=== PATIENT | male | born 1995 | race Caucasian/White ===

== ENCOUNTER 2023-10-20 04:08 | Inpatient (IN) | payer BC, MEDICAID ==
[~2023-10-20] VITALS: Ht 175.3 cm; Wt 78.7 kg
[~2023-10-20 04:08] MED LIST: HYDR-3927 PO; NICO-907 BC; PALI156D IM; PRAZ1CAP5 PO; TRAZ-251 PO
[2023-10-20] MEDS ORDERED: diphenhydrAMINE 50 mg/ml inj IM ONE (04:30)
[2023-10-20 05:03] LABS: PLATELET COUNT 182 X10'3 (140-440)
[2023-10-20 05:04] LABS: BASOPHILS % (AUTO) 0.8 % (0-1); EOSINOPHILS # (AUTO) 0.2 X10'3 (0-0.9); EOSINOPHILS % (AUTO) 4.5 % (0-6); HEMATOCRIT 44.1 % (42.0-52.0); HEMOGLOBIN 14.7 g/dl (14.0-17.9); LYMPHOCYTES # (AUTO) 1.7 X10'3 (1.1-4.8); LYMPHOCYTES % (AUTO) 35.1 % (21-51); MEAN CORPUSCULAR HGB CONC 33.3 g/dL (33.0-36.5); MEAN CORPUSCULAR VOLUME 90.3 FL (78-98); MEAN PLATELET VOLUME 7.5 FL (7.4-10.4); MONOCYTES # (AUTO) 0.4 X10'3 (0-0.9); MONOCYTES % (AUTO) 7.7 % (2-12); NEUTROPHILS # (AUTO) 2.6 X10'3 (1.8-7.7); NEUTROPHILS % (AUTO) 51.9 % (42-75); RED BLOOD COUNT 4.88 X10'6 (4.70-6.10); WHITE BLOOD COUNT 4.9 X10'3 (4.5-11.0)
[2023-10-20 05:09] LABS: ALANINE AMINOTRANSFERASE 22 U/L (12-78); ALBUMIN 3.7 G/DL (3.4-5.0); ALBUMIN/GLOBULIN RATIO 1.4 (1.1-1.5); ALKALINE PHOSPHATASE 41 IU/L (46-116); ANION GAP 6 (8-16); ASPARTATE AMINO TRANSFERASE 42 U/L (10-37); BLOOD UREA NITROGEN 12 MG/DL (7-18); CALCIUM 8.6 MG/DL (8.5-10.1); CHLORIDE 103 MMOL/L (99-107); GLUCOSE 98 MG/DL (70-104); POTASSIUM 3.6 MMOL/L (3.5-5.1); SODIUM 138 MMOL/L (135-145); TOTAL CARBON DIOXIDE 29.4 MMOL/L (24-32); TOTAL PROTEIN 6.4 G/DL (6.4-8.2); eCRCL 137 ML/MIN; eGFR > 90 ML/MIN
[2023-10-20 05:17] LABS: ETHANOL < 10 MG/DL (<10); THYROID STIMULATING HORMONE 3.67 ulU/ml (0.34-4.50)
[2023-10-20 08:00] VITALS: RESP 16; O2SAT 97
[2023-10-20 11:05] LABS: URINE AMPHETAMINE SCREEN NEGATIVE (Neg); URINE BARBITUATE SCREEN NEGATIVE (Neg); URINE BENZODIAZEPINES SCREEN NEGATIVE (Neg); URINE CANNABINOID SCREEN NEGATIVE (Neg); URINE COCAINE SCREEN NEGATIVE (Neg); URINE METHADONE SCREEN NEGATIVE (Neg); URINE OPIATE SCREEN NEGATIVE (Neg); URINE PHENCYCLIDINE SCREEN NEGATIVE (Neg)
[2023-10-20] MEDS ORDERED: diphenhydrAMINE 25mg capsule PO ONE (12:05)
[2023-10-20 15:50] VITALS: BP 118/78; PULSE 84; RESP 16; TEMP 97.8; O2SAT 97
[2023-10-20] MEDS ORDERED: TRAZ-251 PO (16:32)
[2023-10-20] MEDS ORDERED: NICO-668 MM (16:32)
[2023-10-20] MEDS ORDERED: HYDR-3927 PO (16:32)
[2023-10-20] MEDS ORDERED: PRAZ1CAP5 PO (16:32)
[2023-10-20] MEDS ORDERED: acetaminophen 325mg tablet PO PRN (17:35)
[2023-10-20] MEDS ORDERED: magnesium hydroxide 30ml (MOM) UD suspension PO PRN (17:35)
[2023-10-20] MEDS ORDERED: mag hydrox/Alum hydrox/simeth 30ml oral suspension PO PRN (17:35)
[2023-10-20] MEDS ORDERED: loperamide 2mg capsule PO PRN (17:35)
[2023-10-20 20:00] VITALS: BP 120/80; RESP 16
[2023-10-20] MEDS: prazosin 1mg capsule PO SCH (20:18)
[2023-10-20] MEDS: traZODone 50mg tablet PO SCH (20:18)
[2023-10-21] MEDS: NICOTINE POLACRILEX 2 MG LOZENGE BC PRN ×4 (05:13→18:52)
[2023-10-21 07:00] VITALS: RESP 16; O2SAT 97
[2023-10-21] MEDS: hydrOXYzine 25 MG tablet PO SCH ×4 (07:34→17:16)
[2023-10-21 08:00] VITALS: BP 116/76; PULSE 86; RESP 16; TEMP 98; O2SAT 97
[2023-10-21 09:11] LABS: HEMOGLOBIN A1C 5.1 % (4.5-6.2)
[2023-10-21 09:43] LABS: CHOL/HDL RATIO 2.4 (0.00-4.99); CHOLESTEROL 172 MG/DL (0-200); HDL CHOLESTEROL 71 MG/DL (35-60); LDL CHOLESTEROL 105 MG/DL (50-100); TRIGLYCERIDES 28 MG/DL (20-135)
[2023-10-21] MEDS: propranolol 10mg tablet PO SCH ×2 (13:07→20:24)
[2023-10-21] MEDS: acetaminophen 325mg tablet PO PRN (18:42)
[2023-10-21 20:00] VITALS: BP 112/76; PULSE 84; RESP 16; TEMP 97.8; O2SAT 96
[2023-10-21] MEDS: prazosin 1mg capsule PO SCH (20:24)
[2023-10-21] MEDS: traZODone 50mg tablet PO SCH (20:24)
[2023-10-22] MEDS: NICOTINE POLACRILEX 2 MG LOZENGE BC PRN ×3 (05:32→16:09)
[2023-10-22 07:00] VITALS: RESP 12; O2SAT 97
[2023-10-22 08:00] VITALS: BP 108/68; PULSE 73; RESP 12; TEMP 98; O2SAT 97
[2023-10-22] MEDS: hydrOXYzine 25 MG tablet PO SCH ×4 (08:00→17:02)
[2023-10-22] MEDS: propranolol 10mg tablet PO SCH ×4 (08:00→20:27)
[2023-10-22 11:00] VITALS: BP 105/74; PULSE 67
[2023-10-22] MEDS: acetaminophen 325mg tablet PO PRN (17:47)
[2023-10-22 19:20] VITALS: BP 93/53; PULSE 66; RESP 16; TEMP 98; O2SAT 97
[2023-10-22] MEDS: prazosin 1mg capsule PO SCH (20:26)
[2023-10-22] MEDS: traZODone 50mg tablet PO SCH (20:27)
[2023-10-23 08:00] VITALS: RESP 16; O2SAT 98
[2023-10-23 08:22] VITALS: BP 100/61; PULSE 74; RESP 16; TEMP 97.4; O2SAT 98
[2023-10-23] MEDS: propranolol 10mg tablet PO SCH ×3 (08:32→20:03)
[2023-10-23] MEDS: hydrOXYzine 25 MG tablet PO SCH ×4 (08:32→23:30)
[2023-10-23] MEDS: NICOTINE POLACRILEX 2 MG LOZENGE BC PRN ×3 (09:07→15:47)
[2023-10-23] MEDS ORDERED: ibuprofen 200mg tablet PO PRN (11:10)
[2023-10-23 13:56] VITALS: BP 115/71; PULSE 84
[2023-10-23 19:30] VITALS: BP 105/54; PULSE 57; RESP 16; TEMP 98.5; O2SAT 98
[2023-10-23] MEDS: traZODone 50mg tablet PO SCH (20:03)
[2023-10-23] MEDS: prazosin 1mg capsule PO SCH (20:04)
[2023-10-23] MEDS ORDERED: PALIPERIDONE 3 MG TAB.ER.24 PO SCH (21:00)
[2023-10-24 07:00] VITALS: RESP 14; O2SAT 98
[2023-10-24] MEDS: propranolol 10mg tablet PO SCH (07:55)
[2023-10-24] MEDS: NICOTINE POLACRILEX 2 MG LOZENGE BC PRN ×2 (07:56→16:36)
[2023-10-24] MEDS: hydrOXYzine 25 MG tablet PO SCH ×2 (07:56→16:36)
[2023-10-24 08:00] VITALS: BP 106/65; PULSE 68; RESP 14; TEMP 98.2; O2SAT 98
[2023-10-24 19:20] VITALS: BP 96/55; PULSE 72; RESP 14; TEMP 97.5; O2SAT 96
[2023-10-24] MEDS: traZODone 50mg tablet PO SCH (19:57)
[2023-10-24] MEDS ORDERED: PALIPERIDONE 3 MG TAB.ER.24 PO SCH (21:00)
[2023-10-24] MEDS ORDERED: prazosin 1mg capsule PO SCH (21:00)
[2023-10-25 07:00] VITALS: RESP 14; O2SAT 96
[2023-10-25] MEDS: hydrOXYzine 25 MG tablet PO SCH ×2 (07:39)
[2023-10-25 08:00] VITALS: BP 106/65; PULSE 62; RESP 14; TEMP 97.7; O2SAT 96
[2023-10-25] MEDS: NICOTINE POLACRILEX 2 MG LOZENGE BC PRN (12:04)
[2023-10-25] MEDS ORDERED: HYDR-3927 PO (14:05)
[2023-10-25] MEDS ORDERED: PALI3TAB5 PO (14:05)
[2023-10-25] MEDS ORDERED: NICO-668 MM (14:05)
== END 2023-10-25 16:04 | disposition home or self-care (01) | DRG 751 ==
LOC: ER 04:09 → ED HOLD 13:05 → ADULT MH 14:27
PROVIDERS: ADMIT Psychiatry & Neurology Psychiatry; ATTEND Psychiatry & Neurology Psychiatry
DX: F29 Unspecified psychosis not due to a substance or known physiological condition (principal); R45.851 Suicidal ideations; F39 Unspecified mood [affective] disorder; F20.9 Schizophrenia, unspecified; F41.9 Anxiety disorder, unspecified; G89.29 Other chronic pain; Z20.822 Contact with and (suspected) exposure to COVID-19; S86.312A Strain of muscle(s) and tendon(s) of peroneal muscle group at lower leg level, left leg, initial encounter; X58.XXXA Exposure to other specified factors, initial encounter; Y93.89 Activity, other specified; Y92.89 Other specified places as the place of occurrence of the external cause; Y99.8 Other external cause status; Z59.00 Homelessness unspecified; Z76.5 Malingerer [conscious simulation]; Z79.899 Other long term (current) drug therapy; Z91.410 Personal history of adult physical and sexual abuse
CPT/HCPCS: 36415; 80053; 80061; 80305; 80320; 83036; 84443; 85025; 87081; 87811; 96372; 99285; J1200; Q0163; Q0177

== ENCOUNTER 2023-11-04 14:25 | Emergency (ER) | payer MEDICAID ==
[~2023-11-04] VITALS: Ht 175.3 cm; Wt 79.2 kg
[~2023-11-04 14:25] MED LIST changes: +NICO-668 MM; -NICO-907 BC; -PALI156D IM; +PALI3TAB5 PO
[2023-11-04 14:56] LABS: URINE AMPHETAMINE SCREEN NEGATIVE (Neg); URINE BARBITUATE SCREEN NEGATIVE (Neg); URINE BENZODIAZEPINES SCREEN NEGATIVE (Neg); URINE CANNABINOID SCREEN NEGATIVE (Neg); URINE COCAINE SCREEN NEGATIVE (Neg); URINE METHADONE SCREEN NEGATIVE (Neg); URINE OPIATE SCREEN NEGATIVE (Neg); URINE PHENCYCLIDINE SCREEN NEGATIVE (Neg)
[2023-11-04 15:05] LABS: BILIRUBIN,URINE NEGATIVE (Neg); CLARITY,URINE CLEAR (Clear); COLOR,URINE YELLOW (Yellow); GLUCOSE, URINE NEGATIVE (Neg); KETONES,URINE 15 mg/dl (Neg); LEUKOCYTE ESTERASE ,URINE NEGATIVE (Neg); NITRITES, URINE NEGATIVE (Neg); OCCULT BLOOD,URINE NEGATIVE (Neg); PROTEIN,URINE NEGATIVE (Neg); UROBILINOGEN,URINE 0.2 E.U/dL (0.2-1.0)
[2023-11-04 15:06] LABS: UA COLLECTION TYPE NON-SPECIFIED
[2023-11-04 15:11] LABS: BASOPHILS # (AUTO) 0.1 X10'3 (0-0.2); BASOPHILS % (AUTO) 0.4 % (0-1); EOSINOPHILS # (AUTO) 0.1 X10'3 (0-0.9); HEMATOCRIT 47.9 % (42.0-52.0); HEMOGLOBIN 15.8 g/dl (14.0-17.9); LYMPHOCYTES # (AUTO) 1.9 X10'3 (1.1-4.8); LYMPHOCYTES % (AUTO) 12.5 % (21-51); MEAN CORPUSCULAR HEMOGLOBIN 29.7 PG (27.0-31.0); MEAN CORPUSCULAR HGB CONC 32.9 g/dL (33.0-36.5); MEAN CORPUSCULAR VOLUME 90.2 FL (78-98); MEAN PLATELET VOLUME 7.5 FL (7.4-10.4); MONOCYTES # (AUTO) 0.7 X10'3 (0-0.9); MONOCYTES % (AUTO) 4.4 % (2-12); NEUTROPHILS # (AUTO) 12.6 X10'3 (1.8-7.7); NEUTROPHILS % (AUTO) 81.7 % (42-75); PLATELET COUNT 242 X10'3 (140-440); RED BLOOD COUNT 5.32 X10'6 (4.70-6.10); RED CELL DISTRIBUTION WIDTH 13.9 % (11.5-14.5); WHITE BLOOD COUNT 15.3 X10'3 (4.5-11.0)
[2023-11-04 15:26] LABS: ALANINE AMINOTRANSFERASE 19 U/L (12-78); ALBUMIN 4.3 G/DL (3.4-5.0); ALBUMIN/GLOBULIN RATIO 1.4 (1.1-1.5); ALKALINE PHOSPHATASE 48 IU/L (46-116); ANION GAP 7 (8-16); ASPARTATE AMINO TRANSFERASE 14 U/L (10-37); BLOOD UREA NITROGEN 20 MG/DL (7-18); BUN/CREATININE RATIO 25.3 (10.0-20.0); CALCIUM 8.9 MG/DL (8.5-10.1); CHLORIDE 100 MMOL/L (99-107); CREATININE 0.79 MG/DL (0.60-1.10); ETHANOL < 10 MG/DL (<10); GLUCOSE 85 MG/DL (70-104); POTASSIUM 4.1 MMOL/L (3.5-5.1); SODIUM 136 MMOL/L (135-145); TOTAL CARBON DIOXIDE 28.8 MMOL/L (24-32); TOTAL PROTEIN 7.3 G/DL (6.4-8.2); eCRCL 139 ML/MIN; eGFR > 90 ML/MIN
[2023-11-04 16:12] LABS: THYROID STIMULATING HORMONE 1.63 ulU/ml (0.34-4.50)
[2023-11-04] MEDS ORDERED: diphenhydrAMINE 25mg capsule PO PRN (16:30)
[2023-11-04] MEDS ORDERED: PROP10TA10 PO (16:58)
[2023-11-04] MEDS ORDERED: DIPH50CA37 PO (16:58)
[2023-11-04] MEDS: propranolol 10mg tablet PO SCH (20:00)
[2023-11-04] MEDS ORDERED: traZODone 50mg tablet PO SCH (21:00)
[2023-11-04] MEDS ORDERED: prazosin 1mg capsule PO SCH (21:00)
[2023-11-05] MEDS: diphenhydrAMINE 25mg capsule PO PRN ×2 (02:49→09:01)
[2023-11-05 06:00] VITALS: BP 108/61; PULSE 67; RESP 14; TEMP 98.9; O2SAT 96
[2023-11-05] MEDS: propranolol 10mg tablet PO SCH (07:13)
== END 2023-11-05 13:21 ==
LOC: ER 14:26
DX: R45.851 Suicidal ideations (principal); Z20.822 Contact with and (suspected) exposure to COVID-19; F20.9 Schizophrenia, unspecified; F41.9 Anxiety disorder, unspecified; Z79.899 Other long term (current) drug therapy
CPT/HCPCS: 36415; 80053; 80305; 80320; 81003; 84443; 85025; 87811; 99285; Q0163

== ENCOUNTER 2024-02-18 07:30 | Inpatient (IN) | payer MEDICAID ==
[~2024-02-18] VITALS: Ht 175.3 cm; Wt 85.5 kg
[~2024-02-18 07:30] MED LIST changes: +DIPH50CA37 PO; +PROP10TA10 PO
[2024-02-18 16:09] VITALS: BP 108/61; PULSE 79; RESP 18; TEMP 97.2; O2SAT 96
[2024-02-18] MEDS ORDERED: loperamide 2mg capsule PO PRN (16:20)
[2024-02-18] MEDS ORDERED: magnesium hydroxide 30ml (MOM) UD suspension PO PRN (16:20)
[2024-02-18] MEDS ORDERED: mag hydrox/Alum hydrox/simeth 30ml oral suspension PO PRN (16:20)
[2024-02-18] MEDS ORDERED: acetaminophen 325mg tablet PO PRN (16:20)
[2024-02-18] MEDS ORDERED: ALBU6.7H14 INH (16:29)
[2024-02-18] MEDS ORDERED: HYDR-3686 PO (16:29)
[2024-02-18] MEDS ORDERED: albuterol 2.5 MG/3 ML nebule NEB PRN (16:40)
[2024-02-18] MEDS: NICOTINE POLACRILEX 2 MG LOZENGE BC PRN (16:43)
[2024-02-18] MEDS: hydrOXYzine 25 MG tablet PO SCH (17:08)
[2024-02-18 20:00] VITALS: BP 109/62; PULSE 79; RESP 18; TEMP 98; O2SAT 96
[2024-02-19] MEDS ORDERED: traZODone 50mg tablet PO PRN (02:35)
[2024-02-19] MEDS: traZODone 50mg tablet PO PRN (02:48)
[2024-02-19] MEDS: nicotine 21mg patch - 24 hr TD SCH (07:33)
[2024-02-19 07:53] LABS: HEMOGLOBIN A1C 5.1 % (4.5-6.2)
[2024-02-19 08:00] VITALS: BP 127/72; PULSE 84; RESP 14; TEMP 97.9; O2SAT 100
[2024-02-19 08:01] LABS: CHOL/HDL RATIO 2.7 (0.00-4.99); CHOLESTEROL 133 MG/DL (0-200); HDL CHOLESTEROL 50 MG/DL (35-60); LDL CHOLESTEROL 76 MG/DL (50-100); TRIGLYCERIDES 33 MG/DL (20-135)
[2024-02-19 19:00] VITALS: RESP 16; O2SAT 97
[2024-02-19 20:00] VITALS: BP 108/76; PULSE 91; RESP 16; TEMP 98.2; O2SAT 97
[2024-02-20 07:00] VITALS: BP 109/56; PULSE 75; RESP 16; TEMP 97.6; O2SAT 98
[2024-02-20] MEDS: ESCITALOPRAM 10 mg tablet 10 MG TABLET PO SCH (08:00)
[2024-02-20 19:00] VITALS: RESP 16; O2SAT 96
[2024-02-20 20:00] VITALS: BP 106/68; PULSE 63; RESP 16; TEMP 97.9; O2SAT 95
[2024-02-21 07:00] VITALS: RESP 16; O2SAT 96
[2024-02-21 07:44] VITALS: BP 122/75; PULSE 64; RESP 16; TEMP 97.2; O2SAT 96
[2024-02-21 19:00] VITALS: RESP 16; O2SAT 96
[2024-02-21 19:17] VITALS: BP 106/76; PULSE 70; RESP 16; TEMP 98; O2SAT 96
[2024-02-21] MEDS ORDERED: brexpiprazole 0.25mg tablet PO SCH (21:00)
[2024-02-22 07:30] VITALS: BP 111/79; PULSE 86; RESP 15; TEMP 97.9; O2SAT 96
[2024-02-22 19:30] VITALS: BP 106/56; PULSE 72; RESP 16; TEMP 97.9; O2SAT 97
[2024-02-23 08:50] VITALS: BP 124/74; PULSE 72; RESP 16; TEMP 98.5; O2SAT 97
[2024-02-23 12:15] VITALS: RESP 16
[2024-02-23 19:30] VITALS: BP 106/60; PULSE 76; RESP 15; TEMP 98.2; O2SAT 96
[2024-02-24 07:00] VITALS: RESP 16; O2SAT 95
[2024-02-24 08:12] VITALS: BP 92/60; PULSE 66; RESP 16; TEMP 98.3; O2SAT 95
[2024-02-24 18:57] VITALS: BP 112/75; PULSE 85; RESP 15; TEMP 98.3; O2SAT 98
[2024-02-24 19:00] VITALS: RESP 15; O2SAT 98
[2024-02-24 20:21] VITALS: BP 112/75; PULSE 85; RESP 15; TEMP 98.3; O2SAT 98
[2024-02-25 07:04] VITALS: RESP 16; O2SAT 95
[2024-02-25 08:00] VITALS: BP 115/64; PULSE 78; RESP 14; TEMP 98; O2SAT 96
[2024-02-25 19:00] VITALS: RESP 15; O2SAT 99
[2024-02-25 20:00] VITALS: BP 82/48; PULSE 63; RESP 15; TEMP 98.1; O2SAT 99
[2024-02-26 07:01] VITALS: RESP 16; O2SAT 95
[2024-02-26 08:00] VITALS: BP 104/59; PULSE 65; RESP 16; TEMP 97.8; O2SAT 97
[2024-02-26 19:00] VITALS: RESP 14; O2SAT 94
[2024-02-26 20:00] VITALS: BP 127/78; PULSE 87; RESP 14; TEMP 98.6; O2SAT 94
[2024-02-27 07:00] VITALS: RESP 15; O2SAT 95
[2024-02-27 08:00] VITALS: BP 132/58; PULSE 68; RESP 14; TEMP 98.6; O2SAT 95
[2024-02-27 19:00] VITALS: BP 112/67; PULSE 82; RESP 16; TEMP 97.9; O2SAT 97; O2SAT 98
[2024-02-28 07:00] VITALS: RESP 16; O2SAT 97
[2024-02-28 08:00] VITALS: RESP 16
[2024-02-28] MEDS: acetaminophen 325mg tablet PO PRN (18:07)
[2024-02-28 19:17] VITALS: BP 117/72; PULSE 84; RESP 16; TEMP 97; O2SAT 99
[2024-02-29 07:00] VITALS: RESP 14; O2SAT 99
[2024-02-29 08:00] VITALS: BP 99/48; PULSE 76; RESP 14; TEMP 98.2; O2SAT 99
[2024-02-29 19:00] VITALS: RESP 16; O2SAT 98
[2024-02-29 19:16] VITALS: BP 104/71; PULSE 93; RESP 16; TEMP 98.2; O2SAT 98
[2024-03-01 07:00] VITALS: BP 103/51; PULSE 60; RESP 12; TEMP 98.2; O2SAT 97
[2024-03-01 19:00] VITALS: RESP 18; O2SAT 97
[2024-03-01 19:15] VITALS: BP 119/74; PULSE 91; RESP 18; TEMP 98.3; O2SAT 97
[2024-03-02 07:00] VITALS: BP 97/51; PULSE 64; RESP 16; TEMP 98.9; O2SAT 96
[2024-03-02] MEDS: ESCITALOPRAM OXALATE 5 MG TABLET PO SCH (08:48)
[2024-03-02] MEDS ORDERED: ESCITALOPRAM OXALATE 5 MG TABLET PO SCH (13:50)
[2024-03-02 19:00] VITALS: RESP 16; O2SAT 95
[2024-03-02 20:00] VITALS: BP 113/76; PULSE 84; RESP 16; TEMP 99; O2SAT 95
[2024-03-02] MEDS: prazosin 1mg capsule PO SCH (20:29)
[2024-03-03 07:00] VITALS: RESP 14; O2SAT 97
[2024-03-03 07:30] VITALS: BP 95/49; PULSE 70; RESP 14; TEMP 98.5; O2SAT 97
[2024-03-03] MEDS: ESCITALOPRAM 10 mg tablet 10 MG TABLET PO SCH (08:07)
[2024-03-03 19:00] VITALS: RESP 16; O2SAT 97
[2024-03-03 20:00] VITALS: BP 123/82; PULSE 86; RESP 16; TEMP 98.3; O2SAT 97
[2024-03-04 07:00] VITALS: RESP 16; O2SAT 98
[2024-03-04 07:30] VITALS: BP 99/57; PULSE 74; RESP 16; TEMP 96.9; O2SAT 98
[2024-03-04] MEDS: ESCITALOPRAM OXALATE 5 MG TABLET PO SCH (08:12)
[2024-03-04 19:00] VITALS: RESP 17; O2SAT 95
[2024-03-04 19:05] VITALS: BP 122/75; PULSE 82; RESP 17; TEMP 98.5; O2SAT 95
[2024-03-05 07:00] VITALS: RESP 16; O2SAT 99
[2024-03-05 08:00] VITALS: BP 91/52; PULSE 87; RESP 16; TEMP 98.2; O2SAT 99
[2024-03-05] MEDS: ESCITALOPRAM 10 mg tablet 10 MG TABLET PO ONE (09:26)
[2024-03-05 19:00] VITALS: RESP 20; O2SAT 97
[2024-03-05 19:16] VITALS: BP 109/81; PULSE 78; RESP 20; TEMP 98.5; O2SAT 97
[2024-03-05 20:25] VITALS: BP 120/90; PULSE 76
[2024-03-06 07:00] VITALS: RESP 16; O2SAT 95
[2024-03-06] MEDS: ESCITALOPRAM 10 mg tablet 10 MG TABLET PO SCH (08:10)
[2024-03-06 08:31] VITALS: BP 100/51; PULSE 60; RESP 16; TEMP 98.8; O2SAT 95
[2024-03-06 19:00] VITALS: RESP 20; O2SAT 97
[2024-03-06 19:10] VITALS: BP 111/81; PULSE 98; RESP 20; TEMP 97.8; O2SAT 97
[2024-03-07 07:00] VITALS: RESP 16; O2SAT 97
[2024-03-07 08:44] VITALS: BP 109/50; PULSE 62; RESP 16; TEMP 98; O2SAT 97
[2024-03-07 19:38] VITALS: RESP 16; O2SAT 100
[2024-03-07 19:51] VITALS: BP 103/66; PULSE 77; RESP 16; TEMP 97.4; O2SAT 100
[2024-03-07] MEDS: LORazepam 0.5 MG tablet PO ONE (20:22)
[2024-03-08 07:00] VITALS: RESP 12; O2SAT 97
[2024-03-08 08:00] VITALS: BP 106/58; PULSE 68; RESP 12; TEMP 98.5; O2SAT 97
[2024-03-08 19:00] VITALS: RESP 18; O2SAT 98
[2024-03-08 20:02] VITALS: BP 121/73; PULSE 99; RESP 18; TEMP 97.8; O2SAT 98
[2024-03-09 07:00] VITALS: RESP 16; O2SAT 95
[2024-03-09 07:30] VITALS: BP 104/60; PULSE 70; RESP 16; TEMP 98.1; O2SAT 95
[2024-03-09 19:25] VITALS: BP 100/69; PULSE 75; RESP 16; TEMP 98.2; O2SAT 99
[2024-03-09 19:58] VITALS: RESP 16; O2SAT 99
[2024-03-10 07:00] VITALS: RESP 16; O2SAT 96
[2024-03-10 07:30] VITALS: BP 122/85; PULSE 67; RESP 16; TEMP 98.3; O2SAT 96
[2024-03-10] MEDS: LORazepam 1 MG tablet PO ONE ×2 (10:25→19:19)
[2024-03-10 19:05] VITALS: BP 109/62; PULSE 72; RESP 14; TEMP 97.7; O2SAT 94
[2024-03-11 07:00] VITALS: RESP 16; O2SAT 96
[2024-03-11 08:00] VITALS: BP 101/51; PULSE 63; RESP 16; TEMP 98.5; O2SAT 96
[2024-03-11] MEDS: LORazepam 1 MG tablet PO ONE (10:53)
[2024-03-11] MEDS ORDERED: LORazepam 1 MG tablet PO PRN (18:15)
[2024-03-11 19:30] VITALS: BP 119/75; PULSE 88; RESP 17; TEMP 98.6; O2SAT 96
[2024-03-12 07:00] VITALS: RESP 16; O2SAT 95
[2024-03-12 08:00] VITALS: BP 125/69; PULSE 90; RESP 18; TEMP 98.3; O2SAT 96
[2024-03-12] MEDS: ESCITALOPRAM 10 mg tablet 10 MG TABLET PO SCH (08:07)
[2024-03-12] MEDS: LORazepam 0.5 MG tablet PO PRN (09:33)
[2024-03-12 19:24] VITALS: RESP 14; O2SAT 96
[2024-03-12 19:46] VITALS: BP 100/56; PULSE 76; RESP 14; TEMP 97.6; O2SAT 96
[2024-03-13 07:00] VITALS: RESP 16; O2SAT 96
[2024-03-13 07:30] VITALS: BP 94/54; PULSE 70; RESP 16; TEMP 98.8; O2SAT 97
[2024-03-13 19:15] VITALS: RESP 14; O2SAT 94
[2024-03-13 20:00] VITALS: BP 99/54; PULSE 78; RESP 14; TEMP 98.1; O2SAT 94
[2024-03-14 07:00] VITALS: RESP 16; O2SAT 85
[2024-03-14] MEDS: ESCITALOPRAM 10 mg tablet 10 MG TABLET PO SCH (07:58)
[2024-03-14 08:00] VITALS: BP 95/57; PULSE 85; RESP 16; TEMP 97.8; O2SAT 96
[2024-03-14] MEDS: LORazepam 1 MG tablet PO ONE (11:58)
[2024-03-14 19:00] VITALS: BP 108/63; PULSE 73; RESP 18; TEMP 97.4; O2SAT 95
[2024-03-14 20:56] VITALS: BP 114/72
[2024-03-15 07:00] VITALS: BP 93/54; PULSE 75; RESP 16; TEMP 98; O2SAT 96
[2024-03-15] MEDS ORDERED: LORazepam 0.5 MG tablet PO PRN (14:30)
[2024-03-15] MEDS: hydrOXYzine 25 MG tablet PO SCH (17:26)
[2024-03-15 19:28] VITALS: BP 103/60; PULSE 67; RESP 16; TEMP 98.4; O2SAT 97
[2024-03-15 20:30] VITALS: BP 124/86
[2024-03-15] MEDS: LORazepam 1 MG tablet PO PRN (20:41)
[2024-03-16 07:00] VITALS: BP 92/57; PULSE 64; RESP 14; TEMP 98.2; O2SAT 97
[2024-03-16 19:00] VITALS: BP 103/60; PULSE 97; RESP 16; TEMP 96.7; O2SAT 94
[2024-03-17 07:00] VITALS: BP 90/55; PULSE 73; RESP 14; TEMP 98; O2SAT 94
[2024-03-17] MEDS: ESCITALOPRAM 10 mg tablet 10 MG TABLET PO SCH (07:59)
[2024-03-17 19:00] VITALS: RESP 18; O2SAT 99
[2024-03-17 20:40] VITALS: BP 110/73; PULSE 69; RESP 18; TEMP 97.2; O2SAT 99
[2024-03-18 07:00] VITALS: RESP 16; O2SAT 97
[2024-03-18 08:00] VITALS: BP 101/73; PULSE 82; RESP 16; TEMP 97.9; O2SAT 97
[2024-03-18] MEDS: ESCITALOPRAM 10 mg tablet 10 MG TABLET PO SCH (08:17)
[2024-03-18 19:00] VITALS: RESP 14; O2SAT 95
[2024-03-18 19:08] VITALS: BP 111/81; PULSE 91; RESP 14; TEMP 98.4; O2SAT 95
[2024-03-19 07:00] VITALS: BP 96/52; PULSE 61; RESP 16; TEMP 97.4; O2SAT 95
[2024-03-19 20:02] VITALS: BP 112/74; PULSE 80; RESP 14; TEMP 97.7; O2SAT 99
[2024-03-20 07:28] VITALS: BP 94/61; PULSE 76; RESP 16; TEMP 98; O2SAT 97
[2024-03-20 19:00] VITALS: RESP 14; O2SAT 96
[2024-03-20 19:42] VITALS: BP 98/55; PULSE 72; RESP 14; TEMP 98.5; O2SAT 96
[2024-03-20] MEDS: propranolol 10mg tablet PO SCH (20:20)
[2024-03-20] MEDS ORDERED: prazosin 1mg capsule PO SCH (21:00)
[2024-03-21 07:10] VITALS: RESP 16; O2SAT 97
[2024-03-21 08:00] VITALS: BP 106/69; PULSE 62; RESP 16; TEMP 98; O2SAT 96
[2024-03-21 19:00] VITALS: BP 108/70; PULSE 62; RESP 16; TEMP 98; O2SAT 95; O2SAT 96
[2024-03-21] MEDS: ARIPIPRAZOLE 10 MG TABLET PO SCH (21:21)
[2024-03-22 07:00] VITALS: RESP 14; O2SAT 92
[2024-03-22 08:00] VITALS: BP 90/53; PULSE 62; RESP 14; TEMP 98.6; O2SAT 92
[2024-03-22 19:00] VITALS: RESP 16; O2SAT 98
[2024-03-22 20:00] VITALS: BP 100/57; PULSE 75; RESP 16; TEMP 98.2; O2SAT 98
[2024-03-23 07:00] VITALS: RESP 14; O2SAT 92
[2024-03-23 08:00] VITALS: BP 91/49; PULSE 68; RESP 14; TEMP 98; O2SAT 95
[2024-03-23 19:44] VITALS: BP 115/73; PULSE 81; RESP 16; TEMP 98.7; O2SAT 96
[2024-03-23] MEDS: ARIPIPRAZOLE 10 MG TABLET PO SCH (21:13)
[2024-03-24 08:00] VITALS: BP 91/49; PULSE 68; RESP 14; TEMP 98; O2SAT 95
[2024-03-24 09:21] VITALS: BP 100/59; PULSE 68; RESP 14; TEMP 98.4; O2SAT 96
[2024-03-24 19:20] VITALS: BP 121/76; PULSE 80; RESP 20; TEMP 98.4; O2SAT 98
[2024-03-24] MEDS: propranolol 10mg tablet PO SCH (20:10)
[2024-03-25 08:00] VITALS: BP 93/55; PULSE 60; RESP 16; TEMP 98; O2SAT 94
[2024-03-25 08:59] VITALS: RESP 16; O2SAT 94
[2024-03-25 12:33] VITALS: BP 103/68; PULSE 72
[2024-03-25 19:30] VITALS: BP 121/74; PULSE 82; RESP 17; TEMP 98.3; O2SAT 95
[2024-03-26 07:00] VITALS: RESP 12; O2SAT 95
[2024-03-26 08:00] VITALS: BP 96/55; PULSE 57; RESP 12; TEMP 98.2; O2SAT 95
[2024-03-26 20:00] VITALS: BP 107/61; PULSE 107; RESP 14; TEMP 98; O2SAT 95
[2024-03-26] MEDS: aripiprazole 5mg tablet PO SCH (20:55)
[2024-03-27 07:00] VITALS: RESP 16; O2SAT 96
[2024-03-27 08:30] VITALS: BP 98/57; PULSE 63; RESP 16; TEMP 98; O2SAT 96
[2024-03-27 19:00] VITALS: RESP 16; O2SAT 96
[2024-03-27 19:36] VITALS: BP 120/76; PULSE 102; RESP 16; TEMP 97.6; O2SAT 98
[2024-03-28 07:00] VITALS: RESP 18; O2SAT 96
[2024-03-28 08:00] VITALS: BP 110/65; PULSE 71; RESP 18; TEMP 97.8; O2SAT 96
[2024-03-28] MEDS ORDERED: TRAZ-251 PO (09:06)
[2024-03-28] MEDS ORDERED: HYDR-3686 PO (09:06)
[2024-03-28] MEDS ORDERED: ALBU8HFA PO (09:06)
[2024-03-28] MEDS ORDERED: ESCI-8 PO (09:06)
[2024-03-28] MEDS ORDERED: NICO-687 TD (09:06)
[2024-03-28] MEDS ORDERED: LORA-268 PO (09:06)
[2024-03-28] MEDS ORDERED: PROP10TA10 PO (09:06)
[2024-03-28] MEDS ORDERED: ARIP15TA19 PO (09:06)
[2024-03-28] MEDS ORDERED: ESCI20TA39 PO (09:08)
[2024-03-28] MEDS ORDERED: ARIP400S3 IM (09:10)
[2024-03-28] MEDS: aripiprazole 400mg suspension ER syringe IM ONE (09:22)
[2024-03-28 19:00] VITALS: BP 112/68; PULSE 66; RESP 14; TEMP 97.9; O2SAT 95
[2024-03-29 07:00] VITALS: BP 94/50; PULSE 65; RESP 16; TEMP 97.8; O2SAT 96
[2024-03-29 12:50] VITALS: BP 134/83; PULSE 90
== END 2024-03-29 13:37 | disposition home or self-care (01) | DRG 751 ==
LOC: ADULT MH 07:30 → UNDOADMIN 15:57 → ADULT MH 15:57
PROVIDERS: ADMIT Psychiatry & Neurology Psychiatry; ATTEND Psychiatry & Neurology Psychiatry
PROC: GZHZZZZ Group Psychotherapy (ICD-10-PCS; principal; 2024-02-19)
PROC: GZ56ZZZ Individual Psychotherapy, Supportive (ICD-10-PCS; 2024-02-19)
DX: F33.3 Major depressive disorder, recurrent, severe with psychotic symptoms (principal); R45.851 Suicidal ideations; F29 Unspecified psychosis not due to a substance or known physiological condition; F15.10 Other stimulant abuse, uncomplicated; F17.210 Nicotine dependence, cigarettes, uncomplicated; F41.1 Generalized anxiety disorder; F43.10 Post-traumatic stress disorder, unspecified; F60.9 Personality disorder, unspecified; Z59.00 Homelessness unspecified; Z79.899 Other long term (current) drug therapy; Z91.410 Personal history of adult physical and sexual abuse; J45.909 Unspecified asthma, uncomplicated; F41.0 Panic disorder [episodic paroxysmal anxiety]; Z56.0 Unemployment, unspecified; S41.112A Laceration without foreign body of left upper arm, initial encounter; S41.111A Laceration without foreign body of right upper arm, initial encounter; X58.XXXA Exposure to other specified factors, initial encounter; Y93.89 Activity, other specified; Y92.89 Other specified places as the place of occurrence of the external cause; Y99.8 Other external cause status
CPT/HCPCS: 36415; 80061; 83036; 87081; A6250; A6258; A6449; Q0177